=== PATIENT | female | born 2000 | race Caucasian/White ===

== ENCOUNTER 2023-04-06 08:53 | Emergency (ER) | payer BC, SELFPAY ==
[2023-04-06 09:00] VITALS: BP 109/80; PULSE 88; RESP 20; TEMP 36.6; O2SAT 100; BMI 23.5
[2023-04-06] MEDS: KETOROLAC 15 MG/ML inj IVP (09:52)
[2023-04-06] MEDS: ONDANSETRON 2 MG/ML inj 4 MG IVP (09:52)
[2023-04-06] MEDS: 0.9 % SODIUM CHLORIDE 1000 ml 1,000 ML IV (09:52)
[2023-04-06 09:55] LABS: Basophils Absolute Auto 0.01 K/uL (0.00-0.30); Basophils Percent Auto 0.1 % (0.0-3.0); Hematocrit 40.7 % (33.0-51.0); Hemoglobin* 13.5 gm/dL (12.0-16.0); Immature Granulocytes Abs Auto 0.01 K/uL (0.00-0.30); Immature Granulocytes Pct Auto 0.1 %; Lymphocytes Percent Auto 10.4 % (20-44); Mean Corpuscular HGB Conc 33 gm/dL (32-36); Mean Corpuscular Hemoglobin 29 pg (26-34); Mean Corpuscular Volume 86 fL (80-100); Monocytes Percent Auto 3.3 % (0.0-11.0); Neutrophils Percent Auto 86.1 % (42.0-72.0); Platelet Count* 272 K/uL (140-440); RDW Coefficient of Variation % 12.8 % (11.5-15.5); Red Blood Count 4.74 m/uL (4.00-5.20); White Blood Count* 8.76 K/uL (4.50-11.00)
[2023-04-06 09:58] LABS: Slide Review Reflex No
[2023-04-06 10:30] LABS: Albumin* 5.1 g/dL (3.3-5.0); Chloride* 104 mmol/L (96-114); Potassium* 3.6 mmol/L (3.6-5.1); Sodium* 138 mmol/L (135-149)
[2023-04-06 10:32] LABS: Amylase* 82 U/L (18-89); Bilirubin Total* 0.8 mg/dL (0.1-1.5); Creatinine* 0.5 mg/dL (0.5-1.5); Est. Creatinine Clearance* 170.17; Estimated Glomerular Filt Rate 135 ml/min
[2023-04-06 10:33] LABS: Alanine Aminotransferase* 27 U/L (4-35); Alkaline Phosphatase* 73 U/L (40-150); Anion Gap 16 mEq/L (7-15); Aspartate Amino Transferase* 37 U/L (12-35); Blood Urea Nitrogen* 11 mg/dL (5-24); Calcium* 9.7 mg/dL (8.4-10.6); Carbon Dioxide* 18 mmol/L (20-32); Glucose* 149 mg/dL (60-115); Total Protein* 8.5 g/dL (6.0-8.3)
[2023-04-06 10:41] LABS: Appearance Urine Clear (Clear); Bilirubin Urine Negative (Negative); Blood Urine 2+ (Negative); Color Urine Yellow (Yellow); Glucose Urine Trace (Negative); Ketones Urine 1+ (Negative); Leukocyte Esterase Urine Negative (Negative); Nitrite Urine Negative (Negative); Protein Urine Negative (Negative); Specific Gravity Urine 1.025 (1.000-1.030); Urobilinogen Urine 0.2 (0.2-1.0); pH Urine 7.5 (5.0-8.5)
[2023-04-06 10:46] LABS: HCG Qualitative Serum* Negative (Negative)
[2023-04-06] MEDS: HALOPERIDOL 5 MG/ML INJ IV (10:50)
[2023-04-06 10:51] LABS: Squamous Epithelial Cell Urine Few (None-Few); WBC Urine 0-2 (0-5)
--- NOTE | 2023-04-06 11:39 | CRLHL7_ITS ---
For Patients: As a result of the Century Cures Act, medical imaging exams and procedure reports are released immediately into your electronic medical record. You may view this report before your referring provider. If you have questions, please contact your health care provider. INDICATION: Vomiting and stomach pain TECHNIQUE: Axial images were obtained from the diaphragm to the pubic symphysis. Reformats were obtained in the coronal and sagittal plane. IV Contrast: 74 cc Isovue 370 Oral Contrast: None COMPARISON: None. FINDINGS: Lower chest: Unremarkable. Liver: Unremarkable. Normal in size and attenuation. No masses. Gallbladder and bile ducts: Unremarkable. No stones or inflammation. No biliary dilatation. Spleen: Unremarkable. Normal in size without mass. Pancreas: Unremarkable. No mass or inflammation. Adrenal glands: Unremarkable. No nodules. Kidneys: Unremarkable. No masses, stones, or hydronephrosis. Vasculature: Unremarkable. GI tract: The stomach is decompressed. No dilated loops of large or small intestine. Mild patient motion on the examination. Fecalith within the appendix although without appendiceal dilation or periappendiceal inflammation. Pelvis: Trace free fluid in the pelvic cul-de-sac. Bones: Unremarkable for age. IMPRESSION: 1. No dilated bowel or localized inflammation. 2. Incidental fecalith within the appendix although without periappendiceal inflammation or appendiceal dilation. 3. No acute findings to explain the patient`s pain. Please note that all CT scans at this facility use dose modulation, iterative reconstruction, and/or weight-based dosing when appropriate to reduce radiation dose to as low as reasonably achievable. Dictated by Alfonzo aG MD @ 04/06/2023 1:29:18 PM (Electronically Signed)
[2023-04-06] MEDS: HYDROmorphone 0.5 mg/0.5 ml inj IVP (11:58)
--- NOTE | 2023-04-06 12:32 | ED_ITS ---
HPI - Abdominal Pain General Chief Complaint: Abdominal Pain Stated Complaint: Vomiting and stomach pain Time Seen by Provider: 04/06/23 09:33 History of Present Illness HPI narrative: Patient is a 22-year-old woman who comes in today with approximately 12 hour history of abdominal pain. She has had no fevers no chills no night sweats. She has not had any recent use of marijuana or alcohol. She states she is not she has had nausea and vomiting but has had diarrhea. There has been no blood in her vomitus or diarrhea. She has had no recent sick exposures and no recent travel. She states her pain is moderate and her nausea is severe. Pain is localized to the mid abdomen. No dysuria. Related Data Allergies Allergy/AdvReac Type Severity Reaction Status Date / Time No Known Drug Allergies Allergy Verified 04/06/23 09:06 Review of Systems Status of ROS Reports: 10 or more systems reviewed and unremarkable except as noted in History and below PFSH PFS Social History Smoking Status: Never smoker Do you use any of these nicotine containing products: None Second hand tobacco smoke exposure: No How often do you have a drink containing alcohol: never How often do you have six or more drinks on one occasion: Never AUDIT-C Alcohol total score: 0 Non-prescribed substance use: denies use Exam Narrative: Exam Narrative: EXAM GENERAL: Patient appears to be in moderate distress. EYES: No scleral icterus. LYMPH: No supraclavicular or cervical lymphadenopathy. SKIN: Visible skin seen during exam normal or with benign process only. EXT: No dependent lower extremity pedal edema. HEART: Regular rate and rhythm with no murmurs, rubs, or gallops. LUNGS: Clear to auscultation bilaterally with no crackles or wheezes. ABD: Primarily soft with hypoactive bowel sounds no rebound masses or guarding. PSYCH: Good eye contact, speech is not pressured. Neurologic cranial nerves 2-12 grossly intact no focal defects. Const: Vital Signs, click to edit/add: Vital Signs - 24 hr 04/06/23 09:00 04/06/23 09:06 04/06/23 12:35 Temperature 95.8 F L 97.8 F Pulse Rate [Right Pulse Oximeter] 88 98 Respiratory Rate 20 20 Blood Pressure [Ri ght Upper Arm] 109/80 124/58 L Pulse Oximetry 100 100 Oxygen Delivery Me thod Room Air Room Air Course Course ED Course: Patient seen and examined. Patient given normal saline Toradol and Zofran. Follow-up exam unchanged. Patient given 5 mg of IV Haldol and eventually 0.5 mg of IV Dilaudid. Labs including CBC amylase urinalysis serum CT abdomen pelvis pending. Vital Signs Vital signs: Initial Vital Signs Temperature 95.8 F L 04/06/23 09:00 Temperature Source Temporal Artery Scan 04/06/23 09:00 Pulse Rate 88 04/06/23 09:00 Pulse Rhythm Regular 04/06/23 09:00 Respiratory Rate 20 04/06/23 09:00 Blood Pressure 109/80 04/06/23 09:00 Blood Pressure Mean 89 04/06/23 09:00 Blood Pressure Position Left Lateral 04/06/23 09:00 Pulse Oximetry 100 04/06/23 09:00 Oxygen Delivery Method Room Air 04/06/23 09:00 Vital Signs Temperature 95.8 F L 04/06/23 09:00 Pulse Rate 88 04/06/23 09:00 Respiratory Rate 20 04/06/23 09:00 Blood Pressure 109/80 04/06/23 09:00 Pulse Oximetry 100 04/06/23 09:00 Oxygen Delivery Method Room Air 04/06/23 09:00 Temperature 97.8 F 04/06/23 09:06 Pulse Rate 98 04/06/23 12:35 Respiratory Rate 20 04/06/23 12:35 Blood Pressure 124/58 L 04/06/23 12:35 Pulse Oximetry 100 04/06/23 12:35 Oxygen Delivery Method Room Air 04/06/23 12:35 MDM - Abdominal Pain MDM Narrative Medical decision making narrative: Patient is a 22-year-old woman who presents with profound nausea and vomiting. She really has a normal workup with normal laboratory studies in urine with only a mild amount of blood in her urine. Her CT of the abdomen pelvis is unremarkable. I did treat her with normal saline and Toradol as well as Zofran. I also gave her a dose of IV Haldol with modest improvement. She is now back to baseline and feeling well. She would like to go home especially given the normal workup. This thanh she is discharged home with oral Zofran as needed. She will follow-up with her primary physician and discuss her mild hematuria as well. Differential Diagnosis Differential diagnosis: Likely abdominal pain, acute appendicitis, calculus of [place], constipation, diverticulitis, endometriosis, gastroenteritis, pancreatitis and small bowel obstruction Lab Data Labs: Lab Results 04/06/23 04/06/23 Range/Units 09:45 10:35 WBC 8.76 (4.50-11.00) K/uL RBC 4.74 (4.00-5.20) m/uL Hgb 13.5 (12.0-16.0) gm/dL Hct 40.7 (33.0-51.0) % MCV 86 (80-100) fL MCH 29 (26-34) pg MCHC 33 (32-36) gm/dL RDW Coeff of Amilcar 12.8 (11.5-15.5) % Plt Count 272 (140-440) K/uL Neut % (Auto) 86.1 H (42.0-72.0) % Lymph % (Auto) 10.4 L (20-44) % [place] % (Auto) 3.3 (0.0-11.0) % Eos % (Auto) 0.0 (0.0-7.0) % Baso % (Auto) 0.1 (0.0-3.0) % Neut # (Auto) 7.50 H (1.7-7.0) K/uL Lymph # (Auto) 0.90 (0.90-2.90) K/uL [place] # (Auto) 0.30 (0.00-0.90) K/UL Eos # (Auto) 0.00 (0.00-0.50) K/uL Baso # (Auto) 0.01 (0.00-0.30) K/uL Abs Immat Gran (auto) 0.01 (0.00-0.30) K/uL Imm/Tot Granulo (auto) 0.1 % Sodium 138 (135-149) mmol/L Potassium 3.6 (3.6-5.1) mmol/L Chloride 104 (96-114) mmol/L Carbon Dioxide 18 L (20-32) mmol/L Anion Gap 16 H (7-15) mEq/L BUN 11 (5-24) mg/dL Creatinine 0.5 (0.5-1.5) mg/dL Estimated Creat Clear 170.17 Estimated GFR 135 ml/min Glucose 149 H (60-115) mg/dL Calcium 9.7 (8.4-10.6) mg/dL Total Bilirubin 0.8 (0.1-1.5) mg/dL AST 37 H (12-35) U/L ALT 27 (4-35) U/L Alkaline Phosphatase 73 (40-150) U/L Total Protein 8.5 H (6.0-8.3) g/dL Albumin 5.1 H (3.3-5.0) g/dL Amylase 82 (18-89) U/L HCG, Qual Negative (Negative) Urine Color Yellow (Yellow) Urine Appearance Clear (Clear) Urine pH 7.5 (5.0-8.5) Ur Specific [place] 1.025 (1.000-1.030) Urine Protein Negative (Negative) Urine Glucose (UA) Trace A (Negative) Urine Ketones 1+ A (Negative) Urine Blood 2+ A (Negative) Urine Nitrite Negative (Negative) Urine Bilirubin Negative (Negative) Urine Urobilinogen 0.2 (0.2-1.0) Ur Leukocyte Esterase Negative (Negative) Urine RBC 5-10 A (0-2) Urine WBC 0-2 (0-5) Ur Squamous Epith Cells Few (None-Few) Urine Bacteria None (None) Discharge Plan Discharge Clinical Impression: Gastroenteritis Patient Disposition: Home, Self-Care Condition: Stable Instructions: Gastroenteritis (ED) Additional Instructions: Advanced diet activity as tolerated Zofran as needed Follow-up with your doctor next week. Activity Level: No Restrictions Discharge Diet: Regular Follow Up/Referrals: Kristin Falcon MD [Primary Care Provider] - Stand Alone Forms: [employer] Info Instructions
[2023-04-06 12:35] VITALS: BP 124/58; PULSE 98; RESP 20; O2SAT 100
[2023-04-06 13:57] VITALS: BP 115/72
== END 2023-04-06 14:00 | disposition home or self-care (01) ==
PROVIDERS: Emergency Provider Internal Medicine; PCP Family Medicine
DX: K52.9 Noninfective gastroenteritis and colitis, unspecified (principal)
CPT/HCPCS: 36415; 74177; 80053; 81003; 81015; 82150; 84703; 85025; 96361; 96374; 96375; 99283; 99284; 99285; J1170; J1630; J1885; J2405; J7030; Q9967